=== PATIENT | male | born 1955 | race Caucasian/White ===

== ENCOUNTER 2019-06-16 11:07 | Emergency (ER) | payer OTHER ==
[~2019-06-16] VITALS: Ht 182.9 cm; Wt 83.9 kg
--- NOTE | 2019-06-16 11:13 | NUR ---
dr rust at bedside for eval.
[2019-06-16] MEDS ORDERED: ONDANSETRON HCL/PF 4 MG/2 ML VIAL ONE (11:18)
[2019-06-16] MEDS ORDERED: MORPHINE SULFATE INJ 4 MG/ML DISP.SYRIN ONE ×2 (11:18→12:08)
--- NOTE | 2019-06-16 11:23 | NUR ---
iv line started blood drawn and sent to lab.
[2019-06-16] MEDS: IV NS 0.9% 1,000 ML BAG IV ONE (11:25)
[2019-06-16] MEDS: ONDANSETRON HCL/PF 4 MG/2 ML VIAL IVP ONE (11:26)
[2019-06-16] MEDS: PIPERACILLIN /TAZOBACTAM 3.375 G in IV D5W 50 ML IV ONE (11:27)
[2019-06-16] MEDS: MORPHINE SULFATE INJ 2 MG/ML DISP.SYRIN IV ONE ×2 (11:29→12:13)
[2019-06-16 11:30] LABS: BASOPHILS % (AUTO) 0.2 % (0.0-2.0); EOSINOPHILS % (AUTO) 0.2 % (0.0-6.0); HEMATOCRIT 44 % (39-51); HEMOGLOBIN 14.8 g/dL (13.5-17.5); LYMPHOCYTES # (AUTO) 0.9 /CMM (0.8-4.8); LYMPHOCYTES % (AUTO) 6.5 % (20.0-44.0); MEAN CORPUSCULAR HGB CONC 34 g/dl (31.0-36.0); MEAN CORPUSCULAR VOLUME 91 fL (80-96); MONOCYTES # (AUTO) 0.9 /CMM (0.1-1.30); MONOCYTES % (AUTO) 6.5 % (2.0-12.0); NEUTROPHILS # (AUTO) 12.2 /CMM (1.8-8.9); NEUTROPHILS % (AUTO) 86.6 % (43.0-81.0); PLATELET COUNT (AUTO) 205 /CMM (150-450); RED BLOOD CELL COUNT(AUTO) 4.77 MIL/uL (4.5-6.0); WHITE BLOOD COUNT (AUTO) 14.1 K/uL (4.3-11.0)
--- NOTE | 2019-06-16 11:33 | NUR ---
radiology at bedside for R foor and chest xray.
[2019-06-16] MEDS ORDERED: FLAX100032 PO (11:35)
[2019-06-16] MEDS ORDERED: MULT-24 PO (11:35)
[2019-06-16] MEDS ORDERED: ASCO500T9 PO (11:35)
[2019-06-16] MEDS ORDERED: BETA10003 PO (11:35)
[2019-06-16] MEDS ORDERED: CHOL200076 PO (11:35)
[2019-06-16 11:44] LABS: ALANINE AMINOTRANSFERASE 16 U/L (12-78); ALBUMIN 3.2 g/dL (3.4-5.0); ALKALINE PHOSPHATASE 100 U/L (46-116); ASPARTATE AMINOTRANSFERASE 15 U/L (15-37); BILIRUBIN,DIRECT 0.2 mg/dL (0.0-0.2); BILIRUBIN,TOTAL 1.1 mg/dL (0.2-1.0); CALCIUM, SERUM 9.4 mg/dL (8.5-10.1); CARBON DIOXIDE 23 mmol/L (21-32); CHLORIDE 90 mmol/L (98-107); GLUCOSE 333 mg/dL (74-106); POTASSIUM 4.1 mmol/L (3.5-5.1); SODIUM SERUM 130 mmol/L (136-145); TOTAL PROTEIN, SERUM 7.7 g/dL (6.4-8.2); UREA NITROGEN, BLOOD 13 mg/dL (7-18)
[2019-06-16] MEDS: VANCOMYCIN 1 GM in IV D5W 250 ML IV ONE (11:58)
--- NOTE | 2019-06-16 12:03 | NUR ---
pt still c/o r foot pain s/p iv pain meds. ermd made aware. no new order at this time.
--- NOTE | 2019-06-16 12:11 | NUR ---
ANALIST SHASHANK FROM [facility] CALLED FOR TRANSFER INFORMATION. PT IS GOING TO [facility]. NUMBER FOR REPORT [phone]. DR Tegan CARRIZALES IS THE ACCEPTING. BLS ETA 1 HOUR 1315 WITH [facility].
--- NOTE | 2019-06-16 12:13 | NUR ---
verbal order of morphine 4mg. carried out. given ivp.
--- NOTE | 2019-06-16 12:37 | NUR ---
report given to ruben Charge nurse at [facility]. awaiting transport ambulance.
[2019-06-16 13:19] VITALS: BP 146/89
--- NOTE | 2019-06-16 13:20 | NUR ---
transported to [facility] in stable condition.
== END 2019-06-16 13:22 | disposition short-term general hospital (02) ==
LOC: ER 11:13
DX: M86.171 Other acute osteomyelitis, right ankle and foot (principal); Z79.899 Other long term (current) drug therapy
CPT/HCPCS: 36415; 71045; 73630; 80048; 80076; 83605; 84145; 85025; 85730; 87040 ×2; 93005; 96365; 96367; 96375; 96376; 99285; J2270 ×2; J2405; J2543; J3370; J7030; J7060 ×2

== ENCOUNTER 2019-06-24 13:34 | Emergency (ER) | payer OTHER ==
[~2019-06-24] VITALS: Ht 170.2 cm; Wt 64.4 kg
[~2019-06-24 13:34] MED LIST: ASCO-352 PO; BETA10003 PO; CHOL200076 PO; FLAX100032 PO; MULT-24 PO
--- NOTE | 2019-06-24 13:34 | NUR ---
BIB [facility] FROM HOME, RIGHT FOOT PAIN AND REDNESS x 2 WEEKS, OUT OF "CODEINE", R FOOT HAS FOOT VAC. "IT HAS BEEN DARK RED FOR 2WEEKS, IT LOOKS BETTER TODAY"" I ALSO NEED INSULIN, MY SUGAR IS AT 200". TO ER BED 1, HOOKED TO MONITOR, CHANGED TO HOSP GOWN, WARM BLANKET PROVIDED. AWAITING MD PIMENTEL
--- NOTE | 2019-06-24 13:46 | NUR ---
FLORIN 275 , IVON GREY AWARE Addendum: 06/24/19 at 1406 by JAYLON FLORIN 275 , IVON SILVA
--- NOTE | 2019-06-24 15:09 | NUR ---
ARCHITECTURAL TECHNICIAN CONTACTED [facility] FOR AMBULANCE OF PATIENT GOING HOME
--- NOTE | 2019-06-24 15:15 | NUR ---
CALLED [facility] [phone] A WILL CALL US BACK.
--- NOTE | 2019-06-24 16:06 | NUR ---
BLS WILL ARRIVE AT 1700 [facility] PER SYL.
--- NOTE | 2019-06-24 16:59 | NUR ---
Patient picked up by [facility] in stable condition. Patient will be brought to his home in [place]. Written and verbal after care instructions given. Patient verbalizes understanding of instruction.
[2019-06-24 17:02] VITALS: BP 126/75
== END 2019-06-24 17:08 | disposition home or self-care (01) ==
LOC: ER 13:36
DX: M86.671 Other chronic osteomyelitis, right ankle and foot (principal); B35.1 Tinea unguium; E11.9 Type 2 diabetes mellitus without complications; Z76.0 Encounter for issue of repeat prescription; Z60.2 Problems related to living alone; Z79.899 Other long term (current) drug therapy